=== PATIENT | female | born 1980 | race Caucasian/White ===

== ENCOUNTER → 2018-09-26 | Outpatient (CLI) | payer BC ==
--- NOTE | 2018-09-26 14:54 | EKG ---
[place] [address] ELECTROCARDIOGRAM REPORT Name: ÁLVARO HINSON Room: [facility]#: [id number] Admission: 09/26/18 Attend Phys: Dolly Wild RN, Discharge: Date of : 84 Report #: [id number] THIS REPORT FOR: //name// [facility] Test Date: 2018-09-26 Test Time: 12:04:58 Pat Name: ÁLVARO HINSON Department: Room: Gender: F Guest Attendant: : 1980 Requested By: Dolly Wild Order Number: [id number] Stas MD: Gamaliel Rico Measurements Intervals [place] Rate: 80 P: 74 [place]: 137 QRS: 94 QRSD: 97 T: 15 QT: 390 QTc: 450 Interpretive Statements Sinus rhythm Borderline right axis deviation No previous ECG available for comparison Electronically Signed On 09-26-2018 14:54:26 CDT by Gamaliel Rico [email or web address] <ELECTRONICALLY SIGNED> By: Gamaliel Rico MD, [facility] 09/26/18 1454 1204 03 Gamaliel Rico MD, FACC /EPI
== END ==
LOC: M.CRD 11:34
DX: R07.9 Chest pain, unspecified (principal)